=== PATIENT | male | born 1990 | race Caucasian/White ===

== ENCOUNTER 2016-11-06 23:25 | Emergency (ER) | payer OTHER ==
[2016-11-06 23:32] VITALS: BP 115/70; PULSE 66; RESP 14; O2SAT 97
--- NOTE | 2016-11-06 23:42 | ED.REPORT ---
HPI-URI / Cough / Cold Date of Service Nov 06, 2016 ED Provider: Dr. Jacoby Delgado Healthy 26 year old male presents to the ER with URI symptoms for 1 week. Pt has sore throat, hoarse voice and cough. Pt also had mild R ear pain which has since resolved. Nursing Notes Stated Complaint: COLD Chief Complaint: General Complaint Nursing Notes Reviewed: Yes Allergies: Coded Allergies: Penicillins (Verified Allergy, Unknown, unknown, 11/06/16) States family is allergic, unknown if he has reaction No Active Prescriptions or Reported Meds General Time Seen by MD: 23:41 Chief Complaint Cough, non-productive Hx Obtained From: Patient Arrived By: Walk-in Onset Occurred: 1 week ago Symptom Duration: Since onset Severity: Current: Mild Associated with: Reports: Cough, Denies: Fever, Shortness of breath Pertinent Negative: Relieved by nothing Past Medical History Past Medical History None Past Surgical History Hernia repairs Smoking History Never Smoker Social History Alcohol Use: "Social" Other Social History: Review of Systems Basic Review of Systems Cardiovascular: No chest pain, No dyspnea on exertion, No orthopnea, No parox noct dyspnea, No palpitations Musculoskeletal: No extremity swelling, No extremity pain, Full range of motion , Joints NL Hematologic: No bleeding, No bruising Psychiatric: Normal thought content Constitutional: Denies: Fever Ears / Nose / Throat: Reports: Earache right, Sore throat, Voice change Respiratory: Reports: Non-productive cough, Denies: Shortness of breath GI: Denies: Diarrhea, Vomiting Neurologic: Denies: Headache Complete sys rev & neg: except as marked. Physical Exam Initial Vital Signs Vital Signs (First) Date Time Temp Pulse Resp B/P Pulse Ox O2 Delivery O2 Flow Rate FiO2 11/06/16 23:32 36.0 66 14 115/70 97 Room Air Initial VS: Reviewed Head / Eyes: Atraumatic, Normocephalic, PERRL Neck: Supple, Non-tender, Full range of motion Cardiovascular: Regular rate & rhythm, Heart sounds normal, Intact distal pulses Abdomen / GI: Soft, Non-tender Extremities: Vascular intact, Neuro intact, No swelling, No tenderness Skin: Warm, Dry, No cyanosis Neurologic: Alert, Oriented, Nonfocal Psychiatric: Mood/affect normal, Behavior normal, Normal thought content General/Constitutional: Awake, Alert, Cooperative ENT: Airway patent, Mucous membranes moist, Pharynx NL Right Ear / Mastoid: Positive: Tympanic membrane red, Negative: Tympanic membrane bulging Left Ear / Mastoid: Negative: Tympanic membrane bulging, Tympanic membrane red Respiratory / Chest: No respiratory distress Coarse rhonchi R lung Interpretation & Diagnostics Pulse Oximetry Interpretation Pulse Oximetry: Pulse Ox normal (97), On room air Re-Eval/Medical Decision Med Decision/Clinical Course Classic bronchitis with bronchospasm. He also has some folliculitis in the back of his neck that I think we can treat with the digoxin mupirocin. I considered pulmonary emboli to be unlikely. All pulmonary M [place] rule out criteria were met. Wells criteria is 0 risk. D-dimer testing felt to be contraindicated due to the risk of potential false positive. No further testing for pulmonary emboli indicated. Re-Evaluation/Progress : Time of Eval: 00:22 Re-Evaluation/Progress Note: Pt is much improved after the duoneb. Lung sounds clear. Discussed plan for treatment, discharge and follow up. All questions addressed. Counseled Regarding: Diagnosis, Need for follow-up, When/why to return to ED Discharge & Departure Impression: Primary Impression: Bronchitis with bronchospasm Additional Impressions: Otitis media of right ear Otitis media type: unspecified Chronicity: unspecified Qualified Code: H66.91 - Otitis media, unspecified, right ear Folliculitis Disposition: Home Discharge Condition All VS Reviewed: Yes Condition: Improved Patient Instructions: Acute Bronchitis (ED), Folliculitis (ED), Otitis Media ( ED) Additional Instructions: You can use Albuterol 2 puffs every 4 hours as needed. Prednisone daily for 3 days. You can take the antibiotic Doxycycline 2 times daily for 5 days. Avoid sunlight and sunlamps while taking Doxycycline. For your rash, you can apply mupirocin ointment 2 times daily. Call your doctor on Tuesday to schedule a follow up appointment. Return to the ER for anything concerning. Referrals: Jack Persaud MD (PCP) Scribe Attestation Portions of this note were transcribed by Shanna Looney. I, (Dr. Delgado) personally performed the history, physical exam and medical decision-making; I reviewed and confirmed the accuracy of the information in the transcribed note. Signed by: Shanna Looney. Anayeli, 11/07/16,0028 copies to: Jack Persaud MD, Todd P DO Nov 06, 2016 23:41 Shanna Looney Nov 06, 2016 23:49
[2016-11-06] MEDS ORDERED: Albuterol-Ipratropium 3 mL Inhalation Solution NEB ONE (23:50)
[2016-11-06] MEDS ORDERED: predniSONE 20 mg Tablet PO ONE (23:50)
[2016-11-07] VITALS: PULSE 72; RESP 16; O2SAT 99
[2016-11-07] MEDS ORDERED: _Albuterol-HFA 60 Puff Inhaler INHALATION PRN (00:25)
[2016-11-07 01:04] VITALS: BP 128/69; PULSE 83; RESP 16; O2SAT 99
== END 2016-11-07 00:50 | disposition home or self-care (01) ==
LOC: SED 23:25
DX: J20.9 Acute bronchitis, unspecified (principal); H66.91 Otitis media, unspecified, right ear; L73.9 Follicular disorder, unspecified; Z88.0 Allergy status to penicillin
CPT/HCPCS: 94664; 99283; J7620

== ENCOUNTER 2016-11-18 19:14 | Emergency (ER) | payer OTHER ==
[~2016-11-18] VITALS: Ht 185.4 cm; Wt 122.7 kg
[2016-11-18 19:20] VITALS: BP 115/82; PULSE 71; RESP 15; O2SAT 96
--- NOTE | 2016-11-18 19:54 | ED.REPORT ---
HPI-URI / Cough / Cold Date of Service Nov 18, 2016 ED Provider: Dr. Delgado Pt is a healthy 26 year old male who presents to the ED with concerns for a returning cough that he was seen in the ED for last week. He reports that he has been taking the albuterol inhaler, steroids and antibiotics as prescribed. Pt states that his cough has be persistent, but non-productive. He reports that his sinus and ear congestion have been alleviated. He denies any chest pain, or any other complaints. Nursing Notes Stated Complaint: CONGESTION Chief Complaint: Respiratory Complaints Nursing Notes Reviewed: Yes Allergies: Coded Allergies: Penicillins (Verified Allergy, Unknown, unknown, 11/06/16) States family is allergic, unknown if he has reaction No Active Prescriptions or Reported Meds General Time Seen by MD: 19:54 Chief Complaint Cough, non-productive Hx Obtained From: Patient Arrived By: Walk-in Onset Occurred: More than a week ago... Symptom Duration: Since onset Severity: Current: No pain currently Severity: Maximum: No pain Context: Immunization Status General: All up to date Similar Sx Previous: Yes Past Medical History Past Medical History None Past Surgical History Hernia repairs Smoking History Never Smoker Social History Alcohol Use: "Social" Other Social History: Review of Systems Constitutional: Denies: Chills, Fever, Malaise, Weakness - generalized Ears / Nose / Throat: Denies: Earache bilateral, Throat pain Respiratory: Reports: Non-productive cough, Wheezing, Denies: Dyspnea on exertion, Shortness of breath GI: Denies: Nausea, Rectal pain Skin: Denies Diaphoresis Neurologic: Denies: Change LOC, Dizziness, Headache, Syncope Complete sys rev & neg: except as marked. Physical Exam Initial Vital Signs Vital Signs (First) Date Time Temp Pulse Resp B/P Pulse Ox O2 Delivery O2 Flow Rate FiO2 11/18/16 19:20 36.1 71 15 115/82 96 Room Air Initial VS: Reviewed Head / Eyes: Atraumatic, Normocephalic, PERRL Neck: Supple Cardiovascular: Regular rate & rhythm, Heart sounds normal, Intact distal pulses Abdomen / GI: Soft, Non-tender, No guarding, No rebound, No distention Skin: Warm, Dry, No cyanosis Neurologic: Alert, Oriented, Nonfocal General/Constitutional: Awake, Alert, Well appearing, Well developed, Cooperative ENT: Atraumatic, Airway patent, Pharynx NL Respiratory / Chest: Atraumatic, Breath sounds NL Right sided expiratory wheezes Interpretation & Diagnostics Lab Results Interpretation Result Diagram: 11/18/16220811/18/162208 Test 11/18/16 22:09 White Blood Count 11.3th/mm3 (3.8-10.1) Red Blood Count 4.96mil/mm3 (4.40-5.80) Hemoglobin 15.0g/dL (13.8-17.2) Hematocrit 43.9% (41.0-50.0) Mean Corpuscular Volume 88.5fL (81-100) Mean Corpuscular Hemoglobin 30.2pg (27.0-35.0) Mean Corpuscular Hemoglobin Concent 34.2% (32.0-37.0) Red Cell Distribution Width 13.2% (12.3-15.4) Platelet Count 294bil/L (150-400) Neutrophils (%) (Auto) 56.3% (40-74) Lymphocytes (%) (Auto) 32.6% (14-46) Monocytes (%) (Auto) 7.8% (4-12) Eosinophils (%) (Auto) 2.7% (0-5) Basophils (%) (Auto) 0.4% (0-3) D-Dimer < 0.5mg/L (<0.50) Sodium Level 138mEq/L (134-144) Potassium Level 4.3mEq/L (3.5-5.2) Chloride Level 102mEq/L (97-108) Carbon Dioxide Level 26mmol/L (18-29) Blood Urea Nitrogen 16mg/dL (6-20) Creatinine 0.86mg/dL (0.76-1.27) Estimat Glomerular Filtration Rate 113mL/min (>59) Glucose Level 118mg/dL (60-99) Calcium Level 9.3mg/dL (8.5-10.1) Total Bilirubin 0.3mg/dL (0.0-1.2) Aspartate Amino Transf (AST/SGOT) 21U/L (0-50) Alanine Aminotransferase (ALT/SGPT) 24U/L (0-44) Alkaline Phosphatase 73U/L (25-150) Total Protein 7.3g/dL (6.4-8.4) Albumin 4.3g/dL (3.4-5.0) Hold Chase Top Tube Received (Received) X-Ray Chest Interpretation Chest Xray Interpretation: IMPRESSION: No acute or active disease is seen in the two-view chest. Dictated by: Donovan Feliciano M.D. on 11/18/2016 at 21:43 Interpretation / Wet Read by: Interpret - Radiologist Re-Eval/Medical Decision Med Decision/Clinical Course Significant improvement with the neb. I suspect that he has bronchitis. Pulmonary life felt to be unlikely. Negative d-dimer. Myocardial infarction felt to be very unlikely as well. Prednisone, beta agonists and a course of Zithromax. Recommend close outpatient follow-up Source of Hx: Old records Re-Evaluation/Progress : Time of Eval: 23:10 Re-Evaluation/Progress Note: Pt is rechecked and informed of his imaging results and the plan to discharge him at this time. He understands and agrees, all questions are addressed. Counseled Regarding: Diagnosis, Lab results, Need for follow-up, When/why to return to ED Discharge & Departure Impression: Primary Impression: Bronchitis Additional Impression: Reactive airway disease Disposition: Home Discharge Condition All VS Reviewed: Yes Condition: Stable Patient Instructions: Acute Bronchitis (ED), Reactive Airways Disease (ED) Additional Instructions: Your labs and imaging results were reassuring. Take prednisone daily for the next 5 days, and continue taking your albuterol as instructed. Finish the Z- pack as directed. Follow up with your primary care provider next week. Return to the emergency department with any new or worsening symptoms. Referrals: Jack Persaud MD (PCP) Anayeli Attestation Portions of this note were transcribed by Becca Girard. I, Dr. Delgado personally performed the history, physical exam and medical decision-making; I reviewed and confirmed the accuracy of the information in the transcribed note. Signed by: Anayeli Lopez, 11/18/2016 23:09 copies to: Jack Persaud MD, Todd P DO Nov 18, 2016 19:54 ADAMA GIRARD Nov 18, 2016 21:24
[2016-11-18] MEDS ORDERED: predniSONE 20 mg Tablet PO ONE (21:25)
--- NOTE | 2016-11-18 21:44 | DRSVH ---
PROCEDURE: X-RAY CHEST, TWO VIEWS ([id number]) INDICATIONS: cough TECHNIQUE: 2 views of the chest were acquired. COMPARISON: None. FINDINGS: Surgical changes and devices: None. Lungs and pleura: No pleural effusions or pneumothorax. Lungs are clear. Mediastinum: Mediastinal contours are normal. Heart size is normal. Bones and chest wall: No suspicious bony abnormalities. Soft tissues appear unremarkable. IMPRESSION: No acute or active disease is seen in the two-view chest. Dictated by: Donovan Feliciano M.D. on 11/18/2016 at 21:43 Approved by: Donovan Feliciano M.D. on 11/18/2016 at 21:43
[2016-11-18 22:15] LABS: BASOPHILS % (AUTO) 0.4 % (0-3); EOSINOPHILS % (AUTO) 2.7 % (0-5); MONOCYTES % (AUTO) 7.8 % (4-12); Mean Corpuscular Hemoglobin 30.2 pg (27.0-35.0); Mean Corpuscular Volume 88.5 fL (81-100); NEUTROPHILS % (AUTO) 56.3 % (40-74); Platelet Count 294 bil/L (150-400)
[2016-11-18 23:27] VITALS: BP 123/76; PULSE 77; RESP 18; O2SAT 95
== END 2016-11-18 23:27 | disposition home or self-care (01) ==
LOC: SED 19:14
DX: J40 Bronchitis, not specified as acute or chronic (principal); J98.8 Other specified respiratory disorders; Z88.0 Allergy status to penicillin

== ENCOUNTER 2017-03-03 06:37 | Emergency (ER) | payer OTHER ==
[~2017-03-03] VITALS: Ht 185.4 cm; Wt 122.7 kg
[2017-03-03 06:53] VITALS: BP 104/68; PULSE 64; RESP 10; O2SAT 96
--- NOTE | 2017-03-03 07:14 | ED.REPORT ---
HPI-Eye Problem Date of Service Mar 03, 2017 ED Provider: Dr Mayers 27 y/o male with no pertinent hx presents to the ED complaining of intermittent itchy and watery eyes since the last 6 days. The pt thought he was having an allergy attack. He took Indira and Zyrtec but the sx did not resolve. The pt also used eye drops for allergy but it seemed to make his sx worse. He states his eyes got puffy and sore. He is concerned that he may be developing pink eye. His sx have mildly improved in the last two days. He denies change in vision, SOB, fever, chills and adenopathy. Nursing Notes Stated Complaint: ITCHY EYES Chief Complaint: Eye Nursing Notes Reviewed: Yes (Itandi, Footnotes not reconciled) Allergies: Coded Allergies: Penicillins (Verified Allergy, Unknown, unknown, 11/06/16) States family is allergic, unknown if he has reaction Scheduled PRN Azelastine HCl (Azelastine HCl) 6 Ml Drops 6 ML OP BID PRN PRN allergies General Time Seen by MD: 07:13 Chief Complaint Irritation/itching (both eyes) Hx Obtained From: Patient Arrived By: Walk-in Sudden in Onset?: Yes Onset Occurred: 6 days ago Symptom Duration: Since onset Progression Since Onset: Gradually improving Location: : Eye both Quality: Itching Severity: Current: Mild Severity: Maximum: Severe Recent Healthcare: No recent doctor visit Similar Sx Previous: No Past Medical History Past Medical History mild environmental allergies Past Surgical History Hernia repairs Smoking History Never Smoker Social History Alcohol Use: "Social" Other Social History: Ambulatory Status Independent Review of Systems Reports: puffy and sore eyes Denies: adenopathy Constitutional: Denies: Chills, Fever Neurologic: Denies: Vision change Complete sys rev & neg: except as marked. Respiratory: Denies: Shortness of breath Allergy / Immune: Reports: Itching (both eyes) Physical Exam Initial Vital Signs Vital Signs (First) Date Time Temp Pulse Resp B/P Pulse Ox O2 Delivery O2 Flow Rate FiO2 03/03/17 06:53 36.4 64 10 104/68 96 Room Air Initial VS: Reviewed Neck: Supple, Non-tender, Full range of motion Respiratory: Breath sounds normal, No respiratory distress Cardiovascular: Regular rate & rhythm, Heart sounds normal Abdomen / GI: Soft, Non-tender Extremities: Vascular intact, Neuro intact, No swelling, No tenderness Skin: Warm, Dry, No cyanosis Neurologic: Alert, Oriented, Nonfocal Head / Eyes: Atraumatic, Normocephalic, PERRL No real conjunctival injection No mucopurulent discharge General/Constitutional: Awake, Alert, No acute distress, Cooperative ENT: Atraumatic, Pharynx NL, No facial swelling Neck: Atraumatic, Supple, Full range of motion, No adenopathy Re-Eval/Medical Decision Med Decision/Clinical Course This is a 27-year-old male presents complaining of itchy watery eyes worse over the past approximately 5 days. Reports "puffiness. He has been concerned about environmental allergies, and has been taking some Indira, and some over the counter eyedrops, reports symptoms really have not improved. Usually they have, and they became concerned about the something more significant. Denies visual changes, he denies mucopurulent drainage, denies fevers or chills. His main complaint remains bilateral history, watery eyes, trace amount of swelling. He denies shortness of breath, urticaria. On exam he appears well. Visual acuity normal. There is trace conjunctival injection, but it is mild. There is no evidence of mucopurulent drainage. There is no preauricular adenopathy. There is no signs of facial cellulitis or bacterial infection. Rest of exam is normal. All in all his exam is indeed suggestive of mild prior mental allergies and allergic conjunctivitis. I am providing some Naphcon-A, single dose of the episode, recommending continued the Indira, and I have written a when necessary prescription for a combination ophthalmology antihistamine plus MAST cell stabilizer to use on a when necessary basis if symptoms not clearly responding to this therapy. Routine precautions reviewed and patient discharged in improved condition. Source of Hx: Old records Re-Evaluation/Progress : Time of Eval: 07:20 Re-Evaluation/Progress Note: Rechecked pt. Discussed diagnosis and plan to discharge. Pt understands and agrees with the plan. F/U instructions and RTER warning given. All questions addressed. Differential Diagnosis: Positive: Conjunctivitis, allergic, Negative: Acute vision loss, Angle closure glaucoma, Burn, alkali, Burn, chemical, Conjunctivitis, bacterial, Conjunctivitis, chlamydia, Corneal abrasion , Corneal laceration, Corneal ulceration, Endophthalmitis, Lens subluxation, Orbital cellulitis, Periorbital cellulitis, Preseptal cellulitis, Retinal artery occlusion, Retinal detachment, Retinal vein occlusion, Subconjunctiva hemorrhage Counseled Regarding: Diagnosis, Need for follow-up, When/why to return to ED Discharge & Departure Primary Impression: Environmental allergies Additional Impression: Allergic conjunctivitis Laterality: bilateral Qualified Code: H10.13 - Acute atopic conjunctivitis, bilateral Disposition: Home Discharge Condition All VS Reviewed: Yes Condition: Stable Patient Instructions: Conjunctivitis (ED) Additional Instructions: 1. Continue the Indira. 2. You received a dose of the medication dexamethasone today which should also help. 3. Put 2 drops of Naphcon-A in each eye up to 4 times a day as needed. 4. Symptoms usually improve rapidly with these medicines. If not improving, you can add optivar eye drops 1 drop twice a day as needed. Referrals: Jack Persaud MD (PCP) Buffy Kurtz Attestation Portions of this note were transcribed by Mary Walden. I, , personally performed the history, physical exam and medical decision- making;I reviewed and confirmed the accuracy of the information in the transcribed note. Signed by Anayeli Castro. 03/03/17 08:05 copies to: Jack Persaud MD; Buffy Kurtz Matthew F MD Mar 03, 2017 07:13 Mary Walden Mar 03, 2017 07:22
[2017-03-03] MEDS ORDERED: Dexamethasone 20 mg/2 mL Oral Solution PO ONE (07:20)
[2017-03-03] MEDS ORDERED: Naphazoline/Pheniramine 5 mL Ophthalmic Solution BOTH_EYES PRN (07:20)
[2017-03-03] MEDS ORDERED: AZEL6DRO6 OP (07:25)
== END 2017-03-03 08:22 | disposition home or self-care (01) ==
LOC: SED 06:37
DX: J30.2 Other seasonal allergic rhinitis (principal); H10.13 Acute atopic conjunctivitis, bilateral; Z88.0 Allergy status to penicillin